=== PATIENT | male | born 1955 | race African-American/Black ===

== ENCOUNTER → 2019-02-22 | Outpatient (CLI) | payer MEDICARE, MEDICAID ==
--- NOTE | 2019-02-22 12:37 | RADIOLOGY REPORT (SQ) ---
EXAM DESCRIPTION: CHEST PA/LATERAL COMPLETED DATE/TIME: 02/22/2019 10:24 am REASON FOR STUDY: LOCALIZED SWELLING, MASS AND LUMP, TRUNK COMPARISON: None. EXAM PARAMETERS: NUMBER OF VIEWS: two views TECHNIQUE: Digital Frontal and Lateral radiographic views of the chest acquired. RADIATION DOSE: NA LIMITATIONS: none FINDINGS: LUNGS AND PLEURA: No opacities, masses or pneumothorax. No pleural effusion. MEDIASTINUM AND HILAR STRUCTURES: No masses or contour abnormalities. HEART AND VASCULAR STRUCTURES: Heart normal size. No evidence for failure. BONES: No acute findings. HARDWARE: None in the chest. OTHER: No other significant finding. IMPRESSION: NO SIGNIFICANT RADIOGRAPHIC FINDING IN THE CHEST. TECHNICAL DOCUMENTATION: JOB ID: [id number] [employer]- All Rights Reserved Reading location - IP/workstation name: [email or web address]
== END ==
LOC: OD 10:07
PROVIDERS: ATTEND Internal Medicine
DX: R22.2 Localized swelling, mass and lump, trunk (principal)
CPT/HCPCS: 71046

== ENCOUNTER → 2020-09-25 | Outpatient (CLI) | payer MEDICARE, MEDICAID | LOC: RAD 08:13 | PROVIDERS: ATTEND Otolaryngology | DX: J31.0 Chronic rhinitis (principal) | CPT/HCPCS: 70486 ==